=== PATIENT | male | born 1925 | race Caucasian/White ===

== ENCOUNTER → 2017-03-27 | Outpatient (CLI) | payer OTHER ==
[~2017-03-27] MED LIST: BACTRIM DS 8001 TA1 PO; CIPRO500 MG PO; CIPROFLOXACIN500 MG PO; DOXYCYCLINE100 M3 PO; FINASTERIDE5 MG PO; FLOMAX0.4 MG PO; LISINOPRIL10 MG PO; NKHM; ULTRAM50 MG PO; ZESTRIL,PRINIVI20 MG PO
== END | disposition home or self-care (01) ==
LOC: RAD 14:45
DX: M79.89 Other specified soft tissue disorders (principal)

== ENCOUNTER 2017-04-12 19:24 | Emergency (ER) | payer MEDICARE ==
[~2017-04-12] VITALS: Ht 167.6 cm; Wt 70.3 kg
[2017-04-12 20:04] LABS: HEMATOCRIT 37.8 % (42.0-52.0); HEMOGLOBIN 12.6 g/dl (14.0-18.0); MEAN CELL VOLUME 92.6 fl (80.0-94.0); MEAN CORPUSCULAR HGB 30.9 pg (27.0-31.0); MEAN CORPUSCULAR HGB CONC 33.3 g/dl (33.0-37.0); MEAN PLATELET VOLUME 11.1 fl (9.6-12.3); PLATELET COUNT AUTOMATED 216 10*3/uL (130-400); RED BLOOD COUNT 4.08 10*6/uL (4.50-5.90); RED CELL DISTRI WIDTH 13.3 % (0-14.5); WHITE BLOOD COUNT 8.5 10*3/uL (4.8-10.8)
[2017-04-12 20:14] LABS: ACT PARTIAL THROMBO TIME 22.8 SECONDS (20.8-31.5)
[2017-04-12 20:21] LABS: ALBUMIN 3.2 gm/dl (3.1-4.5); CREATININE 1.48 mg/dL (0.70-1.30); POTASSIUM 3.9 mmol/L (3.5-5.1); TOTAL PROTEIN 6.7 gm/dL (6.4-8.2); TROPONIN I 0.025 ng/ml (<0.045)
[2017-04-12 20:24] LABS: ATYPICAL LYMPHS 2 % (0-0); TOTAL CELLS COUNTED 100 #CELLS
[2017-04-12 20:25] LABS: PLATELET SUFFICIENCY NORMAL (NORMAL)
== END 2017-04-12 21:33 | disposition home or self-care (01) ==
LOC: ED 19:24
PROVIDERS: Student in an Organized Health Care Education/Training Program
DX: Z00.00 Encounter for general adult medical examination without abnormal findings (principal); I10 Essential (primary) hypertension; Z87.440 Personal history of urinary (tract) infections; Z79.899 Other long term (current) drug therapy